=== PATIENT | female | born 1965 | race Asian ===

== ENCOUNTER 2023-12-17 16:56 | Inpatient (IN) | payer MEDICARE, OTHER ==
[~2023-12-17] VITALS: Ht 162.6 cm; Wt 68.0 kg
[2023-12-17] MEDS ORDERED: OLANZAPINE 10 MG VIAL IM ONE (17:10)
[2023-12-17] MEDS: OLANZAPINE 10 MG VIAL IM ONE (17:20)
[2023-12-17 17:37] LABS: BASOPHILS % (AUTO) 0.2 % (0.0-2.0); EOSINOPHILS # (AUTO) 0.1 K/uL (0.0-0.7); EOSINOPHILS % (AUTO) 1.1 % (0.0-6.0); HEMATOCRIT 36 % (33-45); HEMOGLOBIN 11.8 g/dL (11.5-14.8); LYMPHOCYTES # (AUTO) 1.9 K/uL (0.8-4.8); LYMPHOCYTES % (AUTO) 21.4 % (20.0-44.0); MEAN CORPUSCULAR HEMOGLOBIN 29 PG (26.0-33.0); MEAN CORPUSCULAR HGB CONC 33 g/dl (31.0-36.0); MEAN CORPUSCULAR VOLUME 87 fL (82-100); MONOCYTES # (AUTO) 0.6 K/uL (0.1-1.30); MONOCYTES % (AUTO) 6.5 % (2.0-12.0); NEUTROPHILS # (AUTO) 6.2 K/uL (1.8-8.9); NEUTROPHILS % (AUTO) 70.8 % (43.0-81.0); PLATELET COUNT (AUTO) 288 K/uL (150-450); RED BLOOD CELL COUNT(AUTO) 4.11 MIL/uL (4.0-5.2); RED CELL DISTRIBUTION WIDTH 13.3 % (11.5-15.0); WHITE BLOOD COUNT (AUTO) 8.7 K/uL (4.3-11.0)
[2023-12-17 17:56] LABS: ALANINE AMINOTRANSFERASE 20 U/L (12-78); ALKALINE PHOSPHATASE 114 U/L (46-116); ASPARTATE AMINOTRANSFERASE 11 U/L (15-37); BILIRUBIN,DIRECT 0.1 mg/dL (0.0-0.2); BILIRUBIN,TOTAL 0.2 mg/dL (0.2-1.0); CALCIUM, SERUM 8.7 mg/dL (8.5-10.1); CARBON DIOXIDE 25 mmol/L (21-32); CHLORIDE 107 mmol/L (98-107); CREATININE 0.9 mg/dL (0.6-1.3); GLUCOSE 200 mg/dL (74-106); POTASSIUM 3.9 mmol/L (3.5-5.1); SODIUM SERUM 140 mmol/L (136-145); TOTAL PROTEIN, SERUM 7.4 g/dL (6.4-8.2); UREA NITROGEN, BLOOD 15 mg/dL (7-18)
[2023-12-17 17:58] LABS: ACETAMINOPHEN 0 ug/ml (10-30); ALCOHOL, BLOOD < 3 mg/dL (0-10); SALICYLATE 1.4 mg/dL (2.8-20.0)
[2023-12-17] MEDS ORDERED: VALP250S4 PO (18:26)
[2023-12-17] MEDS ORDERED: OMEG100037 PO (18:26)
[2023-12-17] MEDS ORDERED: RISP3TAB5 PO (18:26)
[2023-12-17] MEDS ORDERED: SENN-261 PO (18:26)
[2023-12-17] MEDS ORDERED: LORA-259 PO (18:26)
[2023-12-17] MEDS ORDERED: LITH300T3 PO (18:26)
[2023-12-17] MEDS ORDERED: INSU100V28 SQ (18:26)
[2023-12-17] MEDS ORDERED: AMLO10TA4 PO (18:26)
[2023-12-17] MEDS ORDERED: ACET-868 PO (18:26)
[2023-12-17] MEDS ORDERED: INSU100I26 SQ (18:26)
[2023-12-17] MEDS ORDERED: DEUT12TA PO (18:26)
[2023-12-17] MEDS ORDERED: ASPI-1169 PO (18:26)
[2023-12-17] MEDS ORDERED: MELA5TAB PO (18:26)
[2023-12-17] MEDS ORDERED: GLIP5TAB13 PO (18:26)
[2023-12-17] MEDS ORDERED: TOPI100T PO (18:26)
[2023-12-17] MEDS ORDERED: HALO2TAB2 PO (18:26)
[2023-12-17] MEDS ORDERED: GLUC1KIT IM (18:26)
[2023-12-17 18:47] LABS: APPEARANCE,URINE CLEAR (CLEAR); BILIRUBIN,URINE NEGATIVE (NEGATIVE); BLOOD, URINE NEGATIVE Ery/uL (NEGATIVE); COLOR,URINE YELLOW (YELLOW); KETONES,URINE NEGATIVE (NEGATIVE); LEUKOCYTE ESTERASE ,URINE NEGATIVE (NEGATIVE); NITRITE, URINE NEGATIVE (NEGATIVE); PROTEIN,URINE NEGATIVE (NEGATIVE); UGLUCOSE NEGATIVE (NEGATIVE); UROBILINOGEN,URINE 0.2 EU/dL (0.2)
[2023-12-17 19:05] LABS: AMPHETAMINE, URINE NEGATIVE (NEGATIVE); BARBITURATE, URINE NEGATIVE (NEGATIVE); BENZODIAZEPINE, URINE NEGATIVE (NEGATIVE); CANNABINOID, URINE NEGATIVE (NEGATIVE); COCCAINE, URINE NEGATIVE (NEGATIVE); OPIATE, URINE NEGATIVE (NEGATIVE); PHENCYCLIDINE SCREEN,URINE NEGATIVE (NEGATIVE)
[2023-12-17 20:45] VITALS: BP 148/89; TEMP 98.2; O2SAT 98
[2023-12-17] MEDS ORDERED: MAG HYDROX/AL HYDROX/SIMETH 30 ML UDC PO PRN (21:30)
[2023-12-17] MEDS ORDERED: MAGNESIUM HYDROXIDE 30 ML UDC PO PRN (21:30)
[2023-12-17] MEDS: BLOOD SUGAR DIAGNOSTIC 1 EACH STRIP IN ONE (21:50)
[2023-12-17] MEDS: ZOLPIDEM TARTRATE 5 MG TABLET PO PRN (22:02)
[2023-12-17] MEDS: *INSULIN REGULAR(HUMULIN R)HUM 100 UNIT/ML VIAL SQ PRN (22:49)
[2023-12-17] MEDS ORDERED: DEXTROSE 50%-WATER 50 ML DISP.SYRIN IV PRN (23:00)
[2023-12-18] MEDS: BLOOD SUGAR DIAGNOSTIC 1 EACH STRIP VI SCH (06:32)
[2023-12-18] MEDS: INSULIN REGULAR, HUMAN 100 UNIT/ML 3 ML VIAL SQ PRN (06:35)
[2023-12-18 08:00] VITALS: BP 158/83; TEMP 97.9; O2SAT 96
[2023-12-18] MEDS: glipiZIDE 5 MG TABLET PO SCH (08:19)
[2023-12-18] MEDS: AMLODIPINE BESYLATE 10 MG TABLET PO SCH (08:20)
[2023-12-18] MEDS: ASPIRIN 81 MG TAB.CHEW PO SCH (08:20)
[2023-12-18] MEDS: QUETIAPINE FUMARATE 25 MG TABLET PO PRN (08:20)
[2023-12-18 08:21] LABS: CALCIUM, SERUM 9.4 mg/dL (8.5-10.1)
[2023-12-18] MEDS: SENNOSIDES 8.6 MG TABLET PO SCH (08:23)
[2023-12-18] MEDS: VALPROIC ACID 250 MG/5 ML UDC PO SCH (08:23)
[2023-12-18 08:34] LABS: CHOLESTEROL 195 mg/dL (<200); HDL CHOLESTEROL 46 mg/dL (40-60); LDL 114 mg/dL (0-99); TRIGLYCERIDES 216 mg/dL (30-150)
[2023-12-18] MEDS: TOPIRAMATE 100 MG TABLET PO SCH (08:44)
[2023-12-18] MEDS: risperiDONE 1 MG TABLET PO SCH (13:01)
[2023-12-18] MEDS: OLANZAPINE 10 MG VIAL IM ONE (15:14)
[2023-12-18 16:00] VITALS: BP 127/82; TEMP 97.9; O2SAT 98
[2023-12-18 20:25] VITALS: BP 116/98; TEMP 98.3; O2SAT 96
[2023-12-19 07:53] LABS: CALCIUM, SERUM 8.7 mg/dL (8.5-10.1); CREATININE 0.9 mg/dL (0.6-1.3); POTASSIUM 3.9 mmol/L (3.5-5.1)
[2023-12-19 08:00] VITALS: BP 114/72; TEMP 98.1; O2SAT 98
[2023-12-19] MEDS ORDERED: Medication Not On Formulary EA (Deutetrabenazine (Austedo) 24 MG) PO SCH (09:00)
[2023-12-19] MEDS: risperiDONE 1 MG TABLET PO PRN (14:25)
[2023-12-19] MEDS: DIVALPROEX SODIUM 125 MG CAP.SPRINK PO SCH (14:25)
[2023-12-19 16:00] VITALS: BP 130/64; TEMP 98.9; O2SAT 98
[2023-12-19] MEDS: OLANZAPINE 10 MG VIAL IM ONE (16:04)
[2023-12-19 21:18] VITALS: BP 155/84; TEMP 97.8; O2SAT 96
[2023-12-20 08:00] VITALS: BP 136/92; TEMP 98.1; O2SAT 98
[2023-12-20 08:21] LABS: CALCIUM, SERUM 8.7 mg/dL (8.5-10.1); CREATININE 1.1 mg/dL (0.6-1.3); POTASSIUM 4.1 mmol/L (3.5-5.1)
[2023-12-20] MEDS: DIVALPROEX SODIUM 250 MG TABLET.DR PO STA (14:59)
[2023-12-20 16:00] VITALS: BP 141/95; TEMP 97.9; O2SAT 97
[2023-12-20] MEDS: ACETAMINOPHEN 325 MG TABLET PO PRN (17:53)
[2023-12-20 20:52] VITALS: BP 115/90; TEMP 98.2; O2SAT 97
[2023-12-20] MEDS: DIVALPROEX SODIUM 125 MG CAP.SPRINK PO SCH (21:33)
[2023-12-21 08:00] VITALS: BP 120/96; TEMP 97.8; O2SAT 95
[2023-12-21] MEDS: PALIPERIDONE PALMITATE 234 MG/1.5 ML SYRINGE IM ONE (13:07)
[2023-12-21 16:37] VITALS: BP 143/95; TEMP 99.3; O2SAT 94
[2023-12-21 20:00] VITALS: BP 138/90; TEMP 98.5; O2SAT 96
[2023-12-22 08:28] VITALS: BP 131/90; TEMP 98.1; O2SAT 97
[2023-12-22 16:00] VITALS: BP 127/80; TEMP 98.9; O2SAT 97
[2023-12-22] MEDS: BENZTROPINE MESYLATE (1 MG) 1 MG TABLET PO SCH (16:46)
[2023-12-22 20:00] VITALS: BP 128/74; TEMP 98.5; O2SAT 96
[2023-12-23 08:00] VITALS: BP 137/63; TEMP 98.9; O2SAT 97
[2023-12-23] MEDS ORDERED: DEXTROSE 50%-WATER 50 ML DISP.SYRIN IV PRN (10:00)
[2023-12-23] MEDS: INSULIN REGULAR, HUMAN 100 UNIT/ML 3 ML VIAL SQ PRN (12:00)
[2023-12-23] MEDS: BLOOD SUGAR DIAGNOSTIC 1 EACH STRIP IN SCH (12:04)
[2023-12-23 16:00] VITALS: BP 133/68; TEMP 97.7; O2SAT 96
[2023-12-23 20:00] VITALS: BP 133/67; TEMP 98.4; O2SAT 97
[2023-12-24 08:00] VITALS: BP 103/50; TEMP 97.9; O2SAT 95
[2023-12-24] MEDS: METFORMIN 500 MG TABLET PO SCH (10:39)
[2023-12-24 16:00] VITALS: BP 141/74; TEMP 98.6; O2SAT 94
[2023-12-24 20:00] VITALS: BP 111/57; TEMP 98.4; O2SAT 100
[2023-12-25 08:00] VITALS: BP 101/58; TEMP 98.1; O2SAT 98
[2023-12-25 08:03] LABS: BASOPHILS % (AUTO) 0.3 % (0.0-2.0); EOSINOPHILS # (AUTO) 0.1 K/uL (0.0-0.7); EOSINOPHILS % (AUTO) 2.2 % (0.0-6.0); HEMATOCRIT 37 % (33-45); LYMPHOCYTES # (AUTO) 1.2 K/uL (0.8-4.8); LYMPHOCYTES % (AUTO) 22.6 % (20.0-44.0); MEAN CORPUSCULAR HEMOGLOBIN 29 PG (26.0-33.0); MEAN CORPUSCULAR HGB CONC 32 g/dl (31.0-36.0); MEAN CORPUSCULAR VOLUME 89 fL (82-100); MONOCYTES # (AUTO) 0.4 K/uL (0.1-1.30); MONOCYTES % (AUTO) 7.5 % (2.0-12.0); NEUTROPHILS # (AUTO) 3.5 K/uL (1.8-8.9); NEUTROPHILS % (AUTO) 67.4 % (43.0-81.0); PLATELET COUNT (AUTO) 254 K/uL (150-450); RED BLOOD CELL COUNT(AUTO) 4.17 MIL/uL (4.0-5.2); RED CELL DISTRIBUTION WIDTH 13.8 % (11.5-15.0); WHITE BLOOD COUNT (AUTO) 5.2 K/uL (4.3-11.0)
[2023-12-25 08:07] LABS: ALBUMIN 2.6 g/dL (3.4-5.0); BILIRUBIN,TOTAL 0.4 mg/dL (0.2-1.0); CALCIUM, SERUM 8.3 mg/dL (8.5-10.1); CREATININE 0.9 mg/dL (0.6-1.3); POTASSIUM 4.1 mmol/L (3.5-5.1); TOTAL PROTEIN, SERUM 6.8 g/dL (6.4-8.2)
[2023-12-25] MEDS: DIVALPROEX SODIUM 125 MG CAP.SPRINK PO SCH (14:00)
[2023-12-25 16:00] VITALS: BP 128/71; TEMP 97.9; O2SAT 98
[2023-12-25 20:58] VITALS: BP 129/77; TEMP 98.2; O2SAT 97
[2023-12-25] MEDS: *INSULIN REGULAR(HUMULIN R)HUM 100 UNIT/ML VIAL SQ PRN (21:35)
[2023-12-26 08:00] VITALS: BP 138/64; TEMP 97.8; O2SAT 99
[2023-12-26 16:00] VITALS: BP 117/63; TEMP 97.6; O2SAT 100
[2023-12-26 20:00] VITALS: BP 137/82; TEMP 97.9; O2SAT 98
[2023-12-27 08:00] VITALS: BP 136/90; TEMP 98.1; O2SAT 98
[2023-12-27 16:00] VITALS: BP 143/90; TEMP 98.6; O2SAT 98
[2023-12-27 20:34] VITALS: BP 118/73; TEMP 98; O2SAT 98
[2023-12-28 08:00] VITALS: BP 121/97; TEMP 97.7; O2SAT 98
[2023-12-28] MEDS: PALIPERIDONE PALMITATE 156 MG/ML SYRINGE IM ONE (12:53)
[2023-12-28 16:00] VITALS: BP 126/86; TEMP 98.5; O2SAT 98
[2023-12-28 20:00] VITALS: BP 114/97; TEMP 98.4; O2SAT 98
[2023-12-29 07:28] LABS: CALCIUM, SERUM 8.2 mg/dL (8.5-10.1); POTASSIUM 4.2 mmol/L (3.5-5.1)
[2023-12-29 08:00] VITALS: BP 150/83; TEMP 97.5; O2SAT 94
[2023-12-29 16:00] VITALS: BP 116/68; TEMP 98; O2SAT 98
[2023-12-29 20:00] VITALS: BP 141/87; TEMP 98.8; O2SAT 100
[2023-12-30 08:00] VITALS: BP 128/75; TEMP 98.4; O2SAT 99
[2023-12-30 16:00] VITALS: BP 116/87; TEMP 97.7; O2SAT 98
[2023-12-30 20:00] VITALS: BP 125/82; TEMP 98.6; O2SAT 96
[2023-12-30] MEDS: DIVALPROEX SODIUM 125 MG CAP.SPRINK PO SCH (21:20)
[2023-12-31 08:00] VITALS: BP 127/90; TEMP 98; O2SAT 98
[2023-12-31 16:00] VITALS: BP 131/64; TEMP 98; O2SAT 99
[2023-12-31 20:26] VITALS: BP 142/90; TEMP 98.1; O2SAT 100
[2024-01-01 08:00] VITALS: BP 114/88; TEMP 97.8; O2SAT 95
[2024-01-01 16:00] VITALS: BP 128/90; TEMP 97.8; O2SAT 98
[2024-01-01 20:32] VITALS: BP 130/98; TEMP 98.1; O2SAT 96
[2024-01-02 08:00] VITALS: BP 120/65; TEMP 98.4; O2SAT 100
[2024-01-02 16:00] VITALS: BP 123/69; TEMP 97.6; O2SAT 100
[2024-01-02 21:15] VITALS: BP 139/82; TEMP 98.6; O2SAT 98
[2024-01-02] MEDS: INSULIN GLARGINE, 100 UNIT/ML CARTRIDGE SQ SCH (21:48)
[2024-01-02] MEDS ORDERED: INSULIN GLARGINE, 100 UNIT/ML CARTRIDGE SQ SCH (22:00)
[2024-01-03 08:00] VITALS: BP 144/90; TEMP 98.6; O2SAT 98
[2024-01-03 08:06] VITALS: BP 144/90
== END 2024-01-03 14:00 | DRG 885 ==
LOC: ER 17:03 → GPS 20:29
PROVIDERS: ADMIT Psychiatry & Neurology Psychiatry; ATTEND Nurse Practitioner Acute Care
DX: F25.9 Schizoaffective disorder, unspecified (principal); I11.0 Hypertensive heart disease with heart failure; E11.65 Type 2 diabetes mellitus with hyperglycemia; G93.40 Encephalopathy, unspecified; G20.A1 Parkinson's disease without dyskinesia, without mention of fluctuations; K21.9 Gastro-esophageal reflux disease without esophagitis; Z79.4 Long term (current) use of insulin; I50.9 Heart failure, unspecified; Z79.82 Long term (current) use of aspirin; Z79.84 Long term (current) use of oral hypoglycemic drugs; Z79.899 Other long term (current) drug therapy; Z91.148 Patient's other noncompliance with medication regimen for other reason; G31.84 Mild cognitive impairment of uncertain or unknown etiology; F39 Unspecified mood [affective] disorder
CPT/HCPCS: 36415; 80048-TC; 80053-TC; 80061-TC; 80076-TC; 80164-TC; 82962-TC; 83735-TC; 85025-TC; 87081-TC; 92526; 92611-TC; G0480; J1815; J2426; J3490